=== PATIENT | female | born 1955 | race Caucasian/White ===

== ENCOUNTER → 2020-02-03 | Outpatient (CLI) | payer MEDICARE, MEDICAID ==
[~2020-02-03] MED LIST: AMLO10TA8 PO; ATOR20TA37 PO; FLUT1BLS3 IH; FURO-92 PO; HYDR50TA99 PO; LIRA0.6P2 SC; LOSA50TA14 PO; METF1000 PO; MULT-717 PO; ONDA4TAB13 SL; PANT40TA6 PO; PHEN37.53 PO; SERT100T32 PO; SPIR25TA5 PO; SPIR50TA4 PO
== END | disposition home or self-care (01) ==
LOC: STAR 09:22
PROVIDERS: ATTEND Anesthesiology
DX: Z01.812 Encounter for preprocedural laboratory examination (principal); Z20.828 Contact with and (suspected) exposure to other viral communicable diseases
CPT/HCPCS: 36415; 87635

== ENCOUNTER 2020-02-08 09:28 | Day surgery (SDC) | payer MEDICARE, MEDICAID ==
[~2020-02-08] VITALS: Ht 163.8 cm; Wt 148.6 kg
[~2020-02-08 09:28] MED LIST changes: +AMLO-211 PO; -AMLO10TA8 PO
[2020-02-08] MEDS ORDERED: CHLORHEXIDINE 15 ML UDC MM ONE (10:00)
[2020-02-08 10:07] VITALS: BP 165/79
[2020-02-08] MEDS ORDERED: LACTATED RINGERS 1,000 ML IV SCH (10:30)
[2020-02-08 10:38] LABS: ALANINE AMINOTRANSFERASE 32 U/L (12-78); ALBUMIN 4.1 g/dL (3.4-5.0); ANION GAP 9 mmol/L (5-15); CALCIUM 10.2 mg/dL (8.5-10.1); CHLORIDE 105 mmol/L (98-107)
[2020-02-08 10:41] LABS: ALKALINE PHOSPHATASE 97 U/L (45-117); BILIRUBIN,TOTAL 0.6 mg/dL (0.2-1.0); CREATININE 1.18 mg/dL (0.55-1.02); TOTAL PROTEIN 8.4 g/dL (6.4-8.2)
== END 2020-02-08 12:45 | disposition home or self-care (01) ==
LOC: OR 09:28 → OUT 12:45
PROVIDERS: ATTEND Internal Medicine
DX: K21.9 Gastro-esophageal reflux disease without esophagitis (principal); D12.8 Benign neoplasm of rectum; K57.30 Diverticulosis of large intestine without perforation or abscess without bleeding; K29.50 Unspecified chronic gastritis without bleeding; R19.7 Diarrhea, unspecified; I11.0 Hypertensive heart disease with heart failure; I50.9 Heart failure, unspecified; E11.9 Type 2 diabetes mellitus without complications; J44.9 Chronic obstructive pulmonary disease, unspecified; I27.20 Pulmonary hypertension, unspecified; G47.33 Obstructive sleep apnea (adult) (pediatric); Z88.0 Allergy status to penicillin; E66.01 Morbid (severe) obesity due to excess calories; Z88.2 Allergy status to sulfonamides; Z91.048 Other nonmedicinal substance allergy status; Z96.641 Presence of right artificial hip joint; Z96.652 Presence of left artificial knee joint; Z98.890 Other specified postprocedural states; Z99.81 Dependence on supplemental oxygen
CPT/HCPCS: 43239; 45380; 80053; 82962; 88305; J7120